=== PATIENT | male | born 1945 | race Caucasian/White ===

== ENCOUNTER 2021-11-04 09:26 | Inpatient (IN) | payer OTHER ==
[~2021-11-04 09:26] MED LIST: CRESTOR40 MG PO; HCTZ PO; METOP PO
[2021-11-05] MEDS ORDERED: PERCOCET 5-3251 EACH PO (07:28)
[2021-11-05] MEDS ORDERED: COLACE100 MG PO (07:28)
[2021-11-05] MEDS ORDERED: AMOX-CLAV 875-1 EACH PO (07:28)
[2021-11-05] MEDS ORDERED: NEURONTIN800 MG PO (07:28)
[2021-11-05] MEDS ORDERED: MEDROLPACK PO (07:28)
== END 2021-11-08 22:55 | DRG 455 ==
LOC: SURG 09:26 → O/R 11-05 07:14 → SURG 11-05 08:43 → SURH 11-08 15:03
PROVIDERS: ADMIT Orthopaedic Surgery Orthopaedic Surgery of the Spine; ATTEND Orthopaedic Surgery Orthopaedic Surgery of the Spine
PROC: 0SG0071 Fusion of Lumbar Vertebral Joint with Autologous Tissue Substitute, Posterior Approach, Posterior Column, Open Approach (ICD-10-PCS; 2021-11-05)
PROC: 0ST20ZZ Resection of Lumbar Vertebral Disc, Open Approach (ICD-10-PCS; 2021-11-05)
PROC: 0QB30ZZ Excision of Left Pelvic Bone, Open Approach (ICD-10-PCS; 2021-11-05)
PROC: 07DR0ZZ Extraction of Iliac Bone Marrow, Open Approach (ICD-10-PCS; 2021-11-05)
PROC: XRGB0R7 Fusion of Lumbar Vertebral Joint using Custom-Made Anatomically Designed Interbody Fusion Device, Open Approach, New Technology Group 7 (ICD-10-PCS; principal; 2021-11-05 18:15)
DX: M43.16 Spondylolisthesis, lumbar region (principal); M48.062 Spinal stenosis, lumbar region with neurogenic claudication; M51.36 Other intervertebral disc degeneration, lumbar region; I10 Essential (primary) hypertension; R26.9 Unspecified abnormalities of gait and mobility